=== PATIENT | male | born 1975 | race Caucasian/White ===

== ENCOUNTER 2016-07-22 13:29 | Emergency (ER) | payer BC ==
[~2016-07-22] VITALS: Ht 188 cm; Wt 113.4 kg
[2016-07-22 13:41] VITALS: BP 141/99
--- NOTE | 2016-07-22 14:15 | RAD ---
Right ankle, 3 views, 07/22/2016: History: Fall, injury There is a small well-defined calcific density projected along the anterior aspect of the tibiotalar articulation with adjacent spurring. The appearance is compatible with old trauma. There is mild spurring at the midfoot level. No acute fracture or dislocation is identified. There is moderate soft tissue swelling over the lateral malleolus. IMPRESSION: No acute bony abnormality is detected.
[2016-07-22] MEDS ORDERED: NAPROXEN 500 MG TABLET PO STA (14:35)
[2016-07-22] MEDS ORDERED: HYDROCODONE/APAP 5/325MG TABLET. PO ONE (14:45)
[2016-07-22] MEDS ORDERED: HYDR-79 PO (15:13)
--- NOTE | 2016-07-22 15:13 | PHYS DOC ---
Past Medical History Past Medical History: No Pertinent History Past Surgical History: No Surgical History Additional Information: 1 ppd Alcohol Use: None Drug Use: Marijuana Adult General Chief Complaint Chief Complaint: ANKLE PROBLEM HPI HPI Patient is a 40 year old male with no significant medical history who presents with 8 out of 10 sharp right lateral ankle pain that began today after he stepped off his trailer stepping into a hole and rolling, his ankle. Review of Systems Review of Systems Constitutional: Denies fever or chills [] Eyes: Denies change in visual acuity, redness, or eye pain [] Musculoskeletal: Right lateral ankle pain Integument: Denies rash or skin lesions [] Neurologic: Denies headache, focal weakness or sensory changes [] Endocrine: Denies polyuria or polydipsia [] Current Medications Current Medications Current Medications Medications (Trade) Dose Ordered Sig/Ok Start Time Stop Time Status Last Admin Dose Admin Acetaminophen/ Hydrocodone Bitart (Lortab 5/325) 2 tab 1X ONCE 07/22/16 14:45 07/22/16 14:46 DC 07/22/16 14:42 2 TAB Naproxen (Naprosyn) 500 mg 1X STAT 07/22/16 14:35 07/22/16 14:37 DC 07/22/16 14:42 500 MG Allergies Allergies Allergies Coded Allergies Type Severity Reaction Last Updated Verified No Known Drug Allergies 07/22/16 No Physical Exam Physical Exam Constitutional: Well developed, well nourished, no acute distress, non-toxic appearance. [] HENT: Normocephalic, atraumatic, bilateral external ears normal, oropharynx moist, no oral exudates, nose normal. [] Skin: Warm, dry, no erythema, no rash. [] Back: No tenderness, no CVA tenderness. [] Extremities: Right lateral ankle with mild amount of soft tissue swelling. Tenderness on palpation of the right lateral ankle. No deformity to the right lower extremity. +2 right radial pulse is consistent extremity. Sensation intact to the right lower extremity. Neurologic: Alert and oriented X 3, normal motor function, normal sensory function, no focal deficits noted. [] Psychologic: Affect normal, judgement normal, mood normal. [] Current Patient Data Vital Signs Vital Signs Date Time Temp Pulse Resp B/P Pulse Ox O2 Delivery O2 Flow Rate FiO2 07/22/16 13:41 98.6 95 20 97 Room Air 98.6 EKG EKG [] Radiology/Procedures Radiology/Procedures []PROCEDURE: ANKLE RIGHT 3V Right ankle, 3 views, 07/22/2016: History: Fall, injury There is a small well-defined calcific density projected along the anterior aspect of the tibiotalar articulation with adjacent spurring. The appearance is compatible with old trauma. There is mild spurring at the midfoot level. No acute fracture or dislocation is identified. There is moderate soft tissue swelling over the lateral malleolus. IMPRESSION: No acute bony abnormality is detected. DICTATED and SIGNED BY: KADIE VALERIO MD DATE: 07/22/16 1411 CC: PAZ PEREZ APRN ~ Course & Med Decision Making Course & Med Decision Making Pertinent Labs and Imaging studies reviewed. (See chart for details) Patient is in the ED with right ankle pain after rolling it, right ankle x-rays interpreted by radiologist as negative for any acute findings. Patient probably sprained his right ankle. Ice elevation encouraged. Air cast applied to the right ankle by the audio visual tech, neurovascular exam by me is normal, cap refill <2 seconds. Follow-up with orthopedic doctor in one week. Dragon Disclaimer Dragon Disclaimer This electronic medical record was generated, in whole or in part, using a voice recognition dictation system. Departure Departure Impression: Primary Impression: Right ankle sprain Disposition: 01 HOME, SELF-CARE Condition: STABLE Referrals: NO PCP (PCP) SAMANTHA CARTER II, MD Follow-up with the provided orthopedic doctor or your own orthopedic doctor in one week Patient Instructions: Ankle Sprain Additional Instructions: You were seen for right ankle sprain. Please ice and elevate the extremity. Wear the air cast as needed and tolerated. Follow-up with orthopedic doctor in one week if pain continues. Scripts Hydrocodone/Ibuprofen (Hydrocodone-Ibuprofen 7.5-200 )1 Each Tablet1 Tab PO PRN Q6HRS PRN PAIN #12 TAB Ref 0 Prov:PAZ PEREZ APRN 07/22/16 Problem Qualifiers Primary Impression: Right ankle sprain Encounter type: initial encounter Involved ligament of ankle: unspecified ligament Qualified Code: S93.401A - Sprain of unspecified ligament of right ankle, initial encounter PAZ PEREZ APRN Jul 22, 2016 15:13
== END 2016-07-22 15:26 | disposition home or self-care (01) ==
LOC: ER 13:29
DX: S93.401A Sprain of unspecified ligament of right ankle, initial encounter (principal); F17.200 Nicotine dependence, unspecified, uncomplicated; F12.10 Cannabis abuse, uncomplicated; X50.1XXA Overexertion from prolonged static or awkward postures, initial encounter; Y93.89 Activity, other specified; Y92.89 Other specified places as the place of occurrence of the external cause; Y99.8 Other external cause status
CPT/HCPCS: 73610; 99284